=== PATIENT | female | born 1960 | race Caucasian/White ===

== ENCOUNTER → 2016-12-17 | Day surgery (SDC) | payer OTHER ==
[2016-12-17 09:09] LABS: HCT 38.1 % (37.0-47.0); HGB 13.1 g/dl (12.5-16.0); MCH 32.3 pg (25.0-31.0); MCHC 34.4 g/dL (32.0-36.0); MCV 93.8 fL (78.0-100.0); MPV 9.6 fL (6.0-9.5); RBC 4.06 M/uL (4.20-5.40); RDW 12.3 % (11.5-14.0); WBC 8.1 K/uL (4.0-10.5)
[2016-12-17 09:27] LABS: ALBUMIN 4.6 g/dL (3.5-5.0); BILIRUBIN - TOTAL 0.6 mg/dL (0.1-1.0); CREATININE 0.8 mg/dL (0.5-1.0); GLOBULIN (CALCULATION) 2.2 g/dL (2.2-4.2); TOTAL PROTEIN 6.8 g/dL (6.4-8.3)
== END | disposition home or self-care (01) ==
LOC: FAS 08:26
PROVIDERS: Surgery
DX: Z12.11 Encounter for screening for malignant neoplasm of colon (principal); K21.9 Gastro-esophageal reflux disease without esophagitis; E03.9 Hypothyroidism, unspecified; F41.9 Anxiety disorder, unspecified; F32.9 Major depressive disorder, single episode, unspecified; E78.00 Pure hypercholesterolemia, unspecified; Z90.710 Acquired absence of both cervix and uterus; Z88.5 Allergy status to narcotic agent; Z88.8 Allergy status to other drugs, medicaments and biological substances; Z88.2 Allergy status to sulfonamides; Z98.890 Other specified postprocedural states; Z88.1 Allergy status to other antibiotic agents
CPT/HCPCS: 36415; 76705; 80053